=== PATIENT | female | born 1995 | race Two or more races ===

== ENCOUNTER 2016-07-21 20:25 | Emergency (ER) | payer OTHER ==
[~2016-07-21] VITALS: Ht 162.6 cm; Wt 57.0 kg
[~2016-07-21 20:25] MED LIST: ANTIVERT25 MG PO; NAPROSYN500 MG PO
[2016-07-21] MEDS ORDERED: FIORICET,ESG1 TABLET PO (21:20)
[2016-07-21 21:59] VITALS: BP 109/68
== END 2016-07-21 22:01 | disposition home or self-care (01) ==
LOC: EME 20:25
DX: G43.909 Migraine, unspecified, not intractable, without status migrainosus (principal)
CPT/HCPCS: 70450; 99281; 99284

== ENCOUNTER 2016-08-28 07:20 | Emergency (ER) | payer OTHER ==
[~2016-08-28] VITALS: Ht 162.6 cm; Wt 57.0 kg
[~2016-08-28 07:20] MED LIST changes: +FIORICET,ESG1 TABLET PO
[2016-08-28] MEDS ORDERED: LORATADINE10 M2 PO (07:59)
[2016-08-28] MEDS ORDERED: FLUTICASONE PRO16 GM BOTH NARES (07:59)
[2016-08-28 08:48] LABS: ADD MIUA? NO; BILIRUBIN NEGATIVE; BLOOD NEGATIVE; COLOR YELLOW ((YELLOW)); GLUCOSE (STRIP) NEGATIVE; KETONES NEGATIVE; LEUKOCYTES NEGATIVE; NITRITE NEGATIVE; PROTEIN (STRIP) NEGATIVE; SPECIFIC GRAVITY 1.015 (1.000-1.030); UCUL ADDED? NO; UROBILINOGEN 0.2 MG/DL (0.2-1.0)
[2016-08-28 10:27] LABS: EOSINOPHIL COUNT 0.1 K/uL (0-0.3); HEMATOCRIT 37.5 % (36.0-46.0); IMMATURE GRANULOCYTE (%) 0.6 % (0.0-0.7); IMMATURE GRANULOCYTE COUNT 0.1 K/uL; INSTRUMENT ABS NEUTROPHIL CT 5.6 K/uL; LYMPHOCYTE COUNT 2.3 K/uL (1.0-2.8); MCHC 34.1 G/DL (30.0-36.0); MEAN PLAT.VOLUME 9.9 uM^3 (9.5-12.4); MONOCYTE (%) 7.9 % (3-12); MONOCYTE COUNT 0.7 K/uL (0-0.8); NEUTROPHIL COUNT 5.6 K/uL (1.8-6.4); PLATELET COUNT 272 K/uL (156-360); RBC DIS.WIDTH-SD 36.8 % (39-53); RED BLOOD COUNT 4.41 M/uL (3.80-5.20); WHITE BLOOD COUNT 8.8 K/uL (4.1-10.2)
[2016-08-28 10:35] LABS: CHLORIDE 108 mEq/L (99-109); POTASSIUM 4.1 mEq/L (3.7-5.4); SODIUM 139 mEq/L (136-147)
[2016-08-28 10:37] LABS: GLUCOSE 83 mg/dL (70-99)
[2016-08-28 10:38] LABS: ANION GAP 8 MEQ/L (2-14)
[2016-08-28 10:41] LABS: GFR ESTIMATE (CALCULATED) > 59 mL/min/
[2016-08-28 10:42] LABS: UREA NITROGEN (BUN) 11 mg/dL (9-23)
[2016-08-28 10:52] LABS: QUANTITATIVE HCG < 4.0 MIU/ML
[2016-08-28] MEDS ORDERED: MOTRIN600 MG PO (11:28)
[2016-08-28 11:40] VITALS: BP 110/61
== END 2016-08-28 11:40 | disposition home or self-care (01) ==
LOC: EME 07:20
PROVIDERS: Emergency Medicine
DX: R10.32 Left lower quadrant pain (principal); N83.201 Unspecified ovarian cyst, right side
CPT/HCPCS: 76856; 80048; 81003; 84702; 85025; 99281; 99284

== ENCOUNTER 2017-09-28 17:27 | Emergency (ER) | payer OTHER ==
[~2017-09-28] VITALS: Ht 162.6 cm; Wt 58.1 kg
[~2017-09-28 17:27] MED LIST changes: +FLUTICASONE PRO16 GM BOTH NARES; +LORATADINE10 M2 PO; +MOTRIN600 MG PO
[2017-09-28 18:28] LABS: APPEARANCE CLEAR ((CLEAR)); BILIRUBIN NEGATIVE; BLOOD NEGATIVE; COLOR STRAW ((YELLOW)); GLUCOSE (STRIP) NEGATIVE; KETONES NEGATIVE; LEUKOCYTES MODERATE; NITRITE NEGATIVE; PROTEIN (STRIP) NEGATIVE; SPECIFIC GRAVITY 1.011 (1.000-1.030); UROBILINOGEN 0.2 MG/DL (0.2-1.0)
[2017-09-28 18:34] LABS: BACTERIA RARE /HPF; EPITHELIAL CELLS RARE /HPF; MUCUS TRACE /LPF; RED BLOOD CELLS 0-5 /HPF (0-5); UCUL ADDED? NO; WHITE BLOOD CELLS 0-5 /HPF (0-5)
[2017-09-28 18:42] LABS: HEMATOCRIT 40.6 % (36.0-46.0); HEMOGLOBIN 14.4 G/DL (11.9-15.5); MCH 30.5 PG (29.0-34.0); MCHC 35.5 G/DL (30.0-36.0); PLATELET COUNT 305 K/uL (156-360); RBC DIS.WIDTH-CV 11.7 % (11.8-14.6); RBC DIS.WIDTH-SD 36.6 % (39-53); RED BLOOD COUNT 4.72 M/uL (3.80-5.20); WHITE BLOOD COUNT 9.1 K/uL (4.1-10.2)
[2017-09-28 18:52] LABS: ALBUMIN 4.2 g/dL (3.2-4.8); CHLORIDE 105 mEq/L (99-109); POTASSIUM 4.3 mEq/L (3.7-5.4); SODIUM 138 mEq/L (136-147)
[2017-09-28 18:54] LABS: GLUCOSE 98 mg/dL (70-99)
[2017-09-28 18:55] LABS: TOTAL PROTEIN 7.3 g/dL (6.4-8.3)
[2017-09-28 18:56] LABS: TOTAL BILIRUBIN 0.3 mg/dL (0.0-1.0)
[2017-09-28 18:58] LABS: ALKALINE PHOSPHATASE 61 IU/L (3-129); CREATININE 0.9 mg/dL (0.6-1.3); GFR ESTIMATE (CALCULATED) > 59 mL/min/
[2017-09-28 18:59] LABS: UREA NITROGEN (BUN) 11 mg/dL (9-23)
[2017-09-28 19:00] LABS: AST (GOT) 14 IU/L (2-34)
[2017-09-28 19:01] LABS: ALT (GPT) 11 IU/L (3-49)
[2017-09-28 19:10] LABS: QUANTITATIVE HCG < 4.0 MIU/ML
[2017-09-28 21:10] LABS: THYROTROPIN (TSH) 1.8 MIU/L (0.4-5.5)
[2017-09-28] MEDS ORDERED: ANTIVERT25 MG PO (21:22)
[2017-09-28 21:28] VITALS: BP 126/75
== END 2017-09-28 21:44 | disposition home or self-care (01) ==
LOC: EME 17:27
DX: R42 Dizziness and giddiness (principal); R51 Headache; H53.149 Visual discomfort, unspecified; I49.8 Other specified cardiac arrhythmias
CPT/HCPCS: 70450; 80053; 81003; 84443; 84702; 85027; 93005; 99281; 99284